=== PATIENT | male | born 2000 | race Caucasian/White ===

== ENCOUNTER 2021-04-22 19:30 | Emergency (ER) | payer SELFPAY ==
[~2021-04-22] VITALS: Ht 180.3 cm; Wt 77.0 kg
[2021-04-22 20:05] VITALS: BP 115/71
[2021-04-22] MEDS ORDERED: ALBU6.7H9 INH (20:36)
== END 2021-04-22 21:01 | disposition home or self-care (01) ==
LOC: ER 19:30
DX: Z76.0 Encounter for issue of repeat prescription (principal); J45.909 Unspecified asthma, uncomplicated
CPT/HCPCS: 99282